=== PATIENT | male | born 1955 | race Caucasian/White ===

== ENCOUNTER → 2020-02-13 14:45 | Outpatient (BNVA) | payer MEDICARE, MEDICAID, SELFPAY | PROVIDERS: Family Provider Family Medicine; PCP Family Medicine; Visit Provider Specialist | DX: G20 Parkinson's disease (principal); F17.210 Nicotine dependence, cigarettes, uncomplicated | CPT/HCPCS: 95983; 99214 ==

== ENCOUNTER → 2020-08-13 15:02 | Outpatient (BNVA) | payer MEDICARE, MEDICAID, SELFPAY | PROVIDERS: Family Provider Family Medicine; PCP Family Medicine; Visit Provider Specialist | DX: R47.1 Dysarthria and anarthria (principal); G20 Parkinson's disease; F17.210 Nicotine dependence, cigarettes, uncomplicated | CPT/HCPCS: 95983; 99214 ==

== ENCOUNTER 2020-10-10 07:50 | Outpatient (CLI) | payer MEDICARE, MEDICAID, SELFPAY ==
--- NOTE | 2020-10-10 08:01 | FL_ITS ---
WS: [id number] Exam: FL barium swallow [id number] Date/Time of Exam: 10/10/2020 8:30 AM Reason For Exam: DYSPHONIA Fluoroscopy time: 1.4 minutes Swallowing function at the level of oropharynx was normal. There is no evidence of esophageal strictu re or mass. The esophagus is smooth in contour with normal motility. No gastroesophageal reflux was o bserved during fluoroscopy. The esophagus is not displaced. No aspiration was identified. FL/FL barium swallow [id number] IMPRESSION: 1. No indication of esophageal stricture or mass. 2. Swallowing function was normal. Normal esophageal motility.
--- NOTE | 2020-10-10 08:01 | CT_ITS ---
WS: [id number] CT NECK WITH CONTRAST HISTORY: DYSPHONIA TECHNIQUE: Contiguous 5 mm axial images are performed through the neck with intravenous contrast. Sag ittal and coronal reformats are also submitted. All CT scans at [facility] use at least o ne of these dose optimization techniques: automated exposure control; mA and/or kV adjustment per pat ient size (includes targeted exams where dose is matched to clinical indication); or iterative recons truction. CONTRAST: CONTRAST: Omnipaque 300; 95 mL IV. DLP: 726.57 mGy.cm COMPARISON: None available. Deep brain stimulator electrodes are noted. Generators are projecting over the upper chest bilaterall y. Nasopharynx, oropharynx, hypopharynx and larynx are unremarkable. No soft tissue masses or abnormal e nhancement. There is mild asymmetry of the piriform sinuses but this is probably due to rotation and scoliosis of the patient. No enhancing masses are identified. The glottic and subglottic regions are negative. Torus tubarius and fossa of Rosenmuller and parapharyngeal fat are normal. No significant lymphadenopathy is identified. Thyroid gland and salivary glands are normally enhancing with no masses. Moderate RIGHT curvature of the thoracic spine with advanced degenerative changes in the distal verte bral bodies. C4 anterolisthesis by 5 mm. Mild mucoperiosteal thickening of the ethmoid and frontal sinuses. No air-fluid levels. Biapical pleural thickening and scarring, greatest on the RIGHT. CT/CT neck w con* [id number] IMPRESSION: 1. Mild asymmetry of the supraglottic airway without an enhancing mass. Favor the asymmetry is probably due to the moderate scoliosis and degenerative change s within the spine causing distortion of the soft tissues and muscles. 2. No adenopathy. 3. Biapical pleural thickening and fibrosis.
[2020-10-10 08:55] LABS: Blood Urea Nitrogen 23 mg/dL (8-23); Glomerular Filtration Rate 67.2 mL/min (90-130)
[2020-10-10] MEDS: iohexol 300 mg/mL 100 mL Btl IV (09:12)
== END 2020-10-10 07:51 | disposition home or self-care (01) ==
LOC: RAD 07:56
PROVIDERS: PCP Family Medicine; Visit Provider Specialist
DX: R49.0 Dysphonia (principal)
CPT/HCPCS: 36415; 70491; 74220; 82565; 84520

== ENCOUNTER 2020-10-15 11:23 | Outpatient (CLI) | payer MEDICARE, MEDICAID, SELFPAY ==
--- NOTE | 2020-10-15 11:29 | FL_ITS ---
WS: [id number] FL barium swallow modified [id number] REASON FOR EXAM: Other dysphagia FLUOROSCOPY TIME: 2.2 minutes FINDINGS: Video fluoroscopy was obtained during the swallowing of small barium meals of varying volume and cons istency. Detailed report of swallowing will be rendered by the speech therapist. There is no obstruction in the mid or lower esophagus. FL/FL barium swallow modifd [id number] IMPRESSION: Video fluoroscopy of swallowing as above.
== END 2020-10-15 11:24 | disposition home or self-care (01) ==
LOC: RAD 11:27
PROVIDERS: PCP Family Medicine; Visit Provider Specialist
DX: R49.0 Dysphonia (principal)
CPT/HCPCS: 74230; 92611

== ENCOUNTER 2020-11-08 15:21 | Outpatient (CLI) | payer MEDICARE, MEDICAID, SELFPAY ==
--- NOTE | 2020-11-08 15:45 | ECG_ITS ---
[facility] Test Date: 2020-11-08 Pat Name: Karlos Tobias Department: Room: Gender: Male Art Model: : 1955 Requested By: Miles Gibbs Order Number: [id number] Cecy MD: Nicole Pugh M.D. Measurements Intervals [place] Rate: 94 P: OK: QRS: 195 QRSD: 98 T: 72 QT: 353 QTc: 441 Interpretive Statements Supraventricular rhythm. Heavy baseline artifact. Defective EKG. Need to repeat the study Electronically Signed On 11-08-2020 18:41:22 APPLIANCE TESTER by Nicole Pugh M.D. [id number] f
== END 2020-11-08 15:22 | disposition home or self-care (01) ==
PROVIDERS: PCP Family Medicine; Visit Provider Specialist
DX: R13.19 Other dysphagia (principal)
CPT/HCPCS: 93005

== ENCOUNTER → 2020-11-27 14:01 | Outpatient (BNVA) | payer MEDICARE, MEDICAID, SELFPAY | PROVIDERS: PCP Family Medicine; Visit Provider Specialist | DX: G20 Parkinson's disease (principal); Z96.89 Presence of other specified functional implants; F17.210 Nicotine dependence, cigarettes, uncomplicated | CPT/HCPCS: 95970; 99214 ==

== ENCOUNTER → 2021-07-15 14:33 | Outpatient (BNVA) | payer MEDICARE, MEDICAID, SELFPAY | PROVIDERS: PCP Family Medicine; Visit Provider Specialist | DX: G20 Parkinson's disease (principal); Z96.82 Presence of neurostimulator; F17.210 Nicotine dependence, cigarettes, uncomplicated | CPT/HCPCS: 95983; 95984; 99214 ==

== ENCOUNTER → 2022-01-05 13:40 | Outpatient (BNVA) | payer MEDICARE, MEDICAID, SELFPAY | PROVIDERS: PCP Family Medicine; Visit Provider Specialist | DX: G20 Parkinson's disease (principal); R49.0 Dysphonia; Z96.82 Presence of neurostimulator; F17.210 Nicotine dependence, cigarettes, uncomplicated | CPT/HCPCS: 95983; 95984; 99214 ==

== ENCOUNTER → 2022-07-06 13:30 | Outpatient (BNVA) | payer MEDICARE, MEDICAID, SELFPAY | PROVIDERS: PCP Family Medicine; Visit Provider Specialist | DX: Z45.42 Encounter for adjustment and management of neurostimulator (principal); Z96.82 Presence of neurostimulator; G20 Parkinson's disease | CPT/HCPCS: 95983; 95984; 99214 ==

== ENCOUNTER → 2023-01-06 12:49 | Outpatient (BNVA) | payer MEDICARE, MEDICAID, SELFPAY | PROVIDERS: PCP Family Medicine; Visit Provider Specialist | DX: G20 Parkinson's disease (principal); Z96.82 Presence of neurostimulator; Z45.42 Encounter for adjustment and management of neurostimulator | CPT/HCPCS: 95983; 95984; 99213 ==

== ENCOUNTER → 2023-06-01 14:18 | Outpatient (BNVA) | payer MEDICARE, MEDICAID, SELFPAY | PROVIDERS: PCP Family Medicine; Visit Provider Specialist | DX: G20 Parkinson's disease (principal); Z45.42 Encounter for adjustment and management of neurostimulator; Z96.82 Presence of neurostimulator | CPT/HCPCS: 95983; 95984; 99214 ==

== ENCOUNTER → 2023-06-29 10:57 | Outpatient (BNVA) | payer MEDICARE, MEDICAID, SELFPAY | PROVIDERS: PCP Family Medicine; Visit Provider Surgery | DX: Z12.11 Encounter for screening for malignant neoplasm of colon (principal) | CPT/HCPCS: 99024; 99203 ==

== ENCOUNTER → 2023-12-01 13:58 | Outpatient (BNVA) | payer MEDICARE, MEDICAID, SELFPAY | PROVIDERS: PCP Family Medicine; Visit Provider Specialist | DX: G20.B2 Parkinson's disease with dyskinesia, with fluctuations (principal); Z96.89 Presence of other specified functional implants | CPT/HCPCS: 99214 ==

== ENCOUNTER → 2024-05-31 12:40 | Outpatient (BNVA) | payer OTHER, MEDICAID, SELFPAY | PROVIDERS: Visit Provider Specialist | DX: G20.B2 Parkinson's disease with dyskinesia, with fluctuations (principal); Z96.89 Presence of other specified functional implants | CPT/HCPCS: 95983; 95984; 99214 ==

== ENCOUNTER → 2024-07-19 12:38 | Outpatient (BNVA) | payer OTHER, MEDICAID, SELFPAY | PROVIDERS: Visit Provider Specialist | DX: G20.B2 Parkinson's disease with dyskinesia, with fluctuations (principal); Z96.89 Presence of other specified functional implants; R27.0 Ataxia, unspecified; Z00.00 Encounter for general adult medical examination without abnormal findings; R47.1 Dysarthria and anarthria | CPT/HCPCS: 36415; 73100; 73120; 80053; 82607; 84443; 85025; 85651; 86160; 86162; 86235; 86255; 86376; 95983; 95984; 99214 ==

== ENCOUNTER → 2024-12-05 12:15 | Outpatient (BNVA) | payer OTHER, MEDICAID, SELFPAY | PROVIDERS: Visit Provider Specialist | DX: M21.942 Unspecified acquired deformity of hand, left hand (principal); G20.B2 Parkinson's disease with dyskinesia, with fluctuations; Z96.89 Presence of other specified functional implants; R27.0 Ataxia, unspecified; Z00.00 Encounter for general adult medical examination without abnormal findings; R03.0 Elevated blood-pressure reading, without diagnosis of hypertension; M21.931 Unspecified acquired deformity of right forearm; M21.932 Unspecified acquired deformity of left forearm; F17.210 Nicotine dependence, cigarettes, uncomplicated | CPT/HCPCS: 99214 ==

== ENCOUNTER → 2025-02-27 13:49 | Outpatient (BNVA) | payer OTHER, MEDICAID, SELFPAY | PROVIDERS: Visit Provider Student in an Organized Health Care Education/Training Program | DX: M79.641 Pain in right hand (principal) | CPT/HCPCS: 73130; 99203 ==

== ENCOUNTER 2025-04-26 14:49 | Outpatient (CLI) | payer OTHER, MEDICAID, SELFPAY ==
--- NOTE | 2025-04-26 14:51 | CT_ITS ---
WS: [id number] LDCT LUNG CANCER SCREENING TECHNIQUE: Noncontrast CT of the chest with coronal and sagittal reformatted images. CLINICAL INFORMATION: G20.B2 - Parkinson's disease with dyskinesia, with fluctu... COMPARISON: None. DLP: 77.87 mGy.cm DIvol: Mean CTDIvol: 1.50 (mGy) All CT scans at [facility] use at least one of these dose optimization techniques: automated exposure control; mA and/or kV adjustment per patient size (includes targeted exams where dose is matched to clinical indication); or iterative reconstruction. FINDINGS: 4 mm noncalcified nodule LEFT upper lobe. Subsegmental atelectasis in the lung bases. A few calcified granulomas. 5 mm LEFT perifissural nodule. Fibrosis in the lung apices. Aortic calcification. No mediastinal or hilar lymphadenopathy. Small esophageal hiatal hernia. No axillary lymphadenopathy. Splenic granulomas. Moderate thoracic kyphosis. CT/CT lung screening [id number] IMPRESSION: LUNG-RADS: 2-Benign Appearance or Behavior FOLLOW UP: 12 Month: Continue annual screening with LDCT
== END 2025-04-26 14:50 | disposition home or self-care (01) ==
LOC: RAD 14:51
PROVIDERS: PCP Family Medicine; Visit Provider Nurse Practitioner Family
DX: Z12.2 Encounter for screening for malignant neoplasm of respiratory organs (principal); F17.200 Nicotine dependence, unspecified, uncomplicated; G20.B2 Parkinson's disease with dyskinesia, with fluctuations; J98.11 Atelectasis; J84.10 Pulmonary fibrosis, unspecified; R91.8 Other nonspecific abnormal finding of lung field; I70.0 Atherosclerosis of aorta; K44.9 Diaphragmatic hernia without obstruction or gangrene; D73.89 Other diseases of spleen; M40.294 Other kyphosis, thoracic region
CPT/HCPCS: 71271

== ENCOUNTER → 2025-05-09 13:15 | Outpatient (BNVA) | payer OTHER, MEDICAID, SELFPAY | PROVIDERS: Visit Provider Surgery | DX: R03.0 Elevated blood-pressure reading, without diagnosis of hypertension (principal); Z12.11 Encounter for screening for malignant neoplasm of colon | CPT/HCPCS: 99214 ==

== ENCOUNTER → 2025-05-10 14:05 | Outpatient (BNVA) | payer OTHER, MEDICAID, SELFPAY | PROVIDERS: Visit Provider Specialist | DX: G20.B2 Parkinson's disease with dyskinesia, with fluctuations (principal); M21.942 Unspecified acquired deformity of hand, left hand; Z96.89 Presence of other specified functional implants; R27.0 Ataxia, unspecified; Z00.00 Encounter for general adult medical examination without abnormal findings; R03.0 Elevated blood-pressure reading, without diagnosis of hypertension; M21.931 Unspecified acquired deformity of right forearm; M21.932 Unspecified acquired deformity of left forearm | CPT/HCPCS: 95983; 99214 ==

== ENCOUNTER 2025-05-31 07:31 | Day surgery (SDC) | payer OTHER, MEDICAID, SELFPAY ==
[2025-05-31 07:52] VITALS: BP 156/99; PULSE 77; RESP 20; TEMP 36.1; O2SAT 95; BMI 29.0
--- NOTE | 2025-05-31 08:03 | W.PM.OPSUD ---
Surgery/Procedure H&P Update DATE OF PROCEDURE: May 31, 2025 DATE H&P PERFORMED: 05/09/25 H&P UPDATE INFORMATION: I have reviewed H&P completed within last 30 days, I have examined patient prior to procedure, No changes to prior documentation, H&P is in [facility] EMR on date indicated and Risks and benefits of the procedure reviewed PLANNED PROCEDURE: Operation Date: 05/31/25 09:00 Proposed Procedures p Colonoscopy 12021 G0121, Z12.11(Not Applicable) - Declan Gaviria MD
--- NOTE | 2025-05-31 08:22 | P.ANESASSM_ITS ---
Pre-Anesthetic Assessment Height/Weight: Height 1.68 m Weight 81.647 kg Temp Pulse Resp BP Pulse Ox O2 Del Method 97 F L 77 20 H 156/99 95 Room Air 05/31/25 07:52 05/31/25 07:52 05/31/25 07:52 05/31/25 07:52 05/31/25 07:52 05/31/25 07:52 Operation Date: 05/31/25 09:00 Proposed Procedures p Colonoscopy 15213 G0121, Z12.11(Not Applicable) - Declan Gaviria MD Familial anesthetic complications: NOne Was Beta Fouzia taken within 24 hours: N/A Was Clonidine taken within 24 hours: N/A Last intake: Intake Last Liquid Date 05/30/25 Last Liquid Time 23:00 Last Solid Date 05/29/25 Last Solid Time 20:00 Social Tobacco and No alcohol Exam alert, oriented x 3, clear to auscultation bilaterally and regular rate & rhythm Airway Mallampati: Class II Dentition: false Comments: Comments: Vocal cord dysfunction Neuropsych parkinsons Anesthetic Plan ASA status: 3 Anesthesia: MAC Risk of > 500 ml blood loss (7ml/kg in children): No Medications/Allergies Home Medications ?Medication ?Instructions ?Recorded ?Confirmed ?Last Taken ?Type pantoprazole 20 mg tablet,delayed 20 mg PO DAILY #90 t abs 04/19/25 05/30/25 05/30/25 Rx release polyethylene glycol 3350 17 4 g PO DAILY PRN constipat ion #238 04/19/25 05/30/25 Unknown Rx gram/dose oral powder (Miralax) grams Allergies Allergy/AdvReac Type Severity Reaction Status Date / Time No Known Allergies Allergy Verified 05/30/25 08:58 Current Medications Generic Name Dose Route Start Last Admin Trade Name Freq PRN Reason Stop Dose Admin Sodium Chloride 1,000 mls @ 15 mls/hr 05/31/25 07:39 05/31/25 07:59 Sodium Chloride 0.9% IV 06/01/25 07:38 15 mls/hr .Q24H PRN Administration COLONOSCOPY FLUIDS PFSH Anesthesia Surgical History S/P deep brain stimulator placement Family History Other CAD (coronary artery disease) Cancer Hypertension Denies family history of Diabetes Stroke Social History Smoking and tobacco/nicotine status: current every day tobacco/nicotine user cigarettes [ Other cigarette details: 3-4 daily] Alcohol intake: current Alcohol intake frequency: few times a month Substance/Drug Use: never
[2025-05-31 09:42] VITALS: BP 95/67; PULSE 68; RESP 14; TEMP 36.4; O2SAT 94
[2025-05-31 09:51] VITALS: BP 108/63; PULSE 61; RESP 16; O2SAT 97
[2025-05-31 10:03] VITALS: BP 128/84; PULSE 56; RESP 16; O2SAT 100
[2025-05-31 10:12] VITALS: BP 116/83; PULSE 67; RESP 18; O2SAT 98
--- NOTE | 2025-05-31 13:49 | ANE.PACU2 ---
Inpatient post-anesthesia follow up: Airway intact: Yes Vital signs: Temperature 97.6 F Pulse Rate 67 Respiratory Rate 18 Blood Pressure 116/83 Pulse Oximetry 98 Oxygen Delivery Me thod Room Air Oxygen Flow Rate Fraction of Inspir ed Oxygen Hydration adequate: Yes Nausea and vomiting: No Pain level: 1 Mental status: Baseline
== END 2025-05-31 10:30 | disposition home or self-care (01) ==
PROVIDERS: PCP Family Medicine; Visit Provider Surgery
PROC: 0DJD8ZZ Inspection of Lower Intestinal Tract, Via Natural or Artificial Opening Endoscopic (ICD-10-PCS; CPT 45378; principal; 2025-05-31 09:00)
DX: Z12.11 Encounter for screening for malignant neoplasm of colon (principal); D12.2 Benign neoplasm of ascending colon; D12.3 Benign neoplasm of transverse colon; K64.8 Other hemorrhoids; K62.89 Other specified diseases of anus and rectum; F17.210 Nicotine dependence, cigarettes, uncomplicated; Z96.82 Presence of neurostimulator
CPT/HCPCS: 45380; 45385; 88305; J2704; J7030

== ENCOUNTER → 2025-06-12 11:03 | Outpatient (BNVA) | payer OTHER, MEDICAID, SELFPAY | PROVIDERS: PCP Family Medicine; Visit Provider Surgery | DX: Z09 Encounter for follow-up examination after completed treatment for conditions other than malignant neoplasm (principal) | CPT/HCPCS: 99213 ==